=== PATIENT | male | born 1955 | race American Indian/Alaskan Native ===

== ENCOUNTER 2017-01-22 08:11 | Day surgery (SDC) | payer BC ==
[~2017-01-22 08:11] MED LIST: ANCEF/STERILE WATER 2 GM/20 ML IV NR
[2017-01-22] MEDS ORDERED: NACL 0.9% 1000 ML 1,000 ML ONE (08:58)
[2017-01-22] MEDS ORDERED: PEPCID IV ONE (08:59)
[2017-01-22] MEDS ORDERED: VERSED IV NR (09:00)
[2017-01-22] MEDS ORDERED: NACL 0.9% 1000 ML 1,000 ML IV SCH (09:00)
[2017-01-22] MEDS ORDERED: PEPCID IV NR (09:00)
--- NOTE | 2017-01-22 09:00 | Anesthesia Day of Surgery ---
Anesthesia Day of Surgery - Day of Surgery Patient Examined: Yes Patient H&P Reviewed: Yes Patient is NPO: Yes
--- NOTE | 2017-01-22 09:00 | Anesthesia Consultation ---
Anesthesia Consult and Med Hx Date of service: 01/22/17 - Airway Anesthetic Teeth Evaluation: Good, Caps ROM Head & Neck: Adequate Mental/Hyoid Distance: Adequate Mallampati Class: Class II Intubation Access Assessment: Probably Good - Pre-Operative Health Status ASA Pre-Surgery Classification: ASA2 - Pulmonary Hx Smoking: Yes (OCC LIGHT SMOKER) Hx Sleep Apnea: No (MAAME PRE SCREEN HIGH RISK) - Cardiovascular System Hx Hypertension: Yes (X 7 YRS) Hx Coronary Artery Disease: No (high cholesterol) Hx Angina: Yes (RARE) - Other Systems Hx Cancer: No
[2017-01-22] MEDS ORDERED: SUBLIMAZE ONE (09:09)
[2017-01-22] MEDS ORDERED: DIPRIVAN 10 MG/ML IV ONE (09:09)
[2017-01-22] MEDS ORDERED: XYLOCAINE MPF 2% ONE (09:09)
[2017-01-22] MEDS ORDERED: DECADRON ONE (09:57)
[2017-01-22] MEDS ORDERED: ZOFRAN ONE (09:57)
--- NOTE | 2017-01-22 10:05 | Operative Report ---
PREOPERATIVE DIAGNOSIS: Left renal stone. POSTOPERATIVE DIAGNOSIS: Left renal stone. PROCEDURE: Left in situ ESWL. SURGEON: Bandar Blackmon M.D. ANESTHESIA: General. FINDINGS: This is a gentleman with a prominent stone, left kidney, intermittent flank pain, now presents for lithotripsy. All risks and complications were discussed. DESCRIPTION OF PROCEDURE: The patient was brought to lithotripsy unit and placed on the table. Following induction of anesthesia, the stone was easily localized on both the AP and oblique image. Shocks were begun at 1 kV. A renal pause was carried out. A total of 2500 shocks were given. We went up to maximum of 6 kV. We were only at 6 kV for approximately 200 shocks. There was some division of this stone. It certainly changed consistency. The patient tolerated the procedure well and brought to recovery in stable condition. JOB# [id number] JANETTE/BUTCH
--- NOTE | 2017-01-22 10:56 | Post Operative Note ---
Date of procedure: 01/22/17 Pre-op diagnosis: l renal stone Post-op diagnosis: same Findings: as above Procedure: left eswl Anesthesia: VIJAYA Surgeon: RANI HATHAWAY Estimated blood loss: none Pathology: none Condition: stable Disposition: PACU
--- NOTE | 2017-01-22 10:58 | Discharge Summary ---
Short Stay Discharge Plan Activity: other (no strianing ) Weight Bearing Status: Full Weight Bearing Diet: low fat, low cholesterol, low salt Special Instructions: other (inc fluids ) Follow up with: KELLE JASON MD [Primary Care Provider] - 7 Days RANI HATHAWAY MD [Staff Physician] - 7 Days
[2017-01-22 11:31] VITALS: BP 140/88
--- NOTE | 2017-01-22 13:22 | Post Anesthesia Evaluation ---
- Post Anesthesia Evaluation Patient Participated: Yes Airway Patent: Yes Stable Respiratory Function: Yes Nausea/Vomiting: No Temp > 96.8F: Yes Pain Manageable: Yes Adequeate Hydration: Yes Anesthesia Complications: No
== END 2017-01-22 08:12 | disposition home or self-care (01) ==
LOC: OR 08:11
PROVIDERS: ATTEND Urology
DX: N20.0 Calculus of kidney (principal); I10 Essential (primary) hypertension; E78.00 Pure hypercholesterolemia, unspecified; F17.200 Nicotine dependence, unspecified, uncomplicated; Z79.899 Other long term (current) drug therapy
CPT/HCPCS: 36415; 50590; 84132; J0690; J1100; J2250; J2405; J2704; J3010; J7030